=== PATIENT | female | born 1985 | race Caucasian/White ===

== ENCOUNTER 2016-07-07 07:00 | Day surgery (SDC) | payer BC ==
[2016-06-29 12:47] LABS: BASOPHILS 0.3 %; BASOPHILS ABSOLUTE 0.02 10/3/uL (0.0-0.16); EOSINOPHILS 1.2 %; EOSINOPHILS ABSOLUTE 0.07 10/3/uL (0.0-0.53); HEMATOCRIT 39.2 % (36.0-48.0); HEMOGLOBIN 13.2 g/dL (12.0-16.0); IMMATURE GRANULOCYTES 0.2 %; IMMATURE GRANULOCYTES ABSOLUTE 0.01 10/3/uL (0.0-0.11); LYMPHOCYTES 38.6 %; LYMPHOCYTES ABSOLUTE 2.24 10/3/uL (0.67-4.30); MEAN CORPUS HGB CONC 33.7 g/dL (32.0-36.0); MEAN CORPUSCULAR HEMOGLOB 29.4 pg (26.0-34.0); MEAN PLATELET VOLUME 9.8 fL (9.2-13.0); MONOCYTES ABSOLUTE 0.29 10/3/uL (0.21-1.20); NEUTROPHILS 54.7 %; NEUTROPHILS ABSOLUTE 3.17 10/3/uL (2.02-8.40); PLATELET COUNT 236 10/3/uL (150-400); RBC DISTRIBUTION WIDTH 13.2 % (12.0-16.0); RED CELL COUNT 4.49 10/6/uL (4.0-5.6); WHITE BLOOD CELLS 5.8 10/3/uL (4.5-10.5)
[2016-06-29 12:50] LABS: MANUAL DIFF NO %; MEAN CORPUSCULAR VOLUME 87.3 fL (80-100)
[2016-06-29 12:52] LABS: A/G RATIO 1.2 (0.7-1.9); ALBUMIN 3.8 G/DL (3.5-5.0); ALKALINE PHOSPHATASE 68 U/L (45-117); BUN (BLOOD UREA NITROGEN) 12 MG/DL (6-23); CALCIUM, SERUM 8.8 MG/DL (8.5-10.4); CHLORIDE, SERUM 106 MMOL/L (96-112); CO2 (CARBON DIOXIDE) 28 MMOL/L (24-34); CREATININE 0.73 MG/DL (0.55-1.02); GFR AFRICAN AMERICAN 126 ML/MIN (>=60); GFR NON AFRICAN AMERICAN 109 ML/MIN (>=60); GLOBULIN 3.2 G/DL (2.5-4.1); GLUCOSE, SERUM 87 MG/DL (60-99); POTASSIUM, SERUM 4.5 MMOL/L (3.5-5.3); SGOT(AST) 11 U/L (5-40); SGPT(ALT) 24 U/L (5-65); SODIUM, SERUM 141 MMOL/L (135-148); TOTAL BILIRUBIN 0.6 MG/DL (0-1.2)
--- NOTE | ~2016-07-07 | OP ---
Record Of Operation [facility] [address] [place]. [address] NAME: CHEL MARCOS : [birth year] STATUS : [facility]#: [id number] AGE: 30 ADM/REG DATE : 07/07/16 MR#: [id number] REPORT SERV DATE: 07/07/16 DICTATED BY: BERNICE RICH III DATE: 07/07/16 REPORT STATUS : Draft TRANSCRIBED BY: MODChristopher DATE: 07/07/16 DATE OF PROCEDURE: 07/07/2016 PREOPERATIVE DIAGNOSIS: Symptomatic umbilical hernia diagnosis. POSTOPERATIVE DIAGNOSIS: Symptomatic umbilical hernia diagnosis PROCEDURE: Repair of umbilical hernia. SURGEON: Bernice Rich M.D. ANESTHESIA: General with intubation. COMPLICATIONS: None. ESTIMATED BLOOD LOSS: Less than 5 mL. SPECIMENS: None. DRAINS: None. LAP AND SPONGE COUNT: Correct x3. BRIEF HISTORY: This 30-year-old female presented with a symptomatic umbilical hernia. It was felt that repair of this hernia was indicated. This procedure, the risks, benefits, and alternatives, including, but not limited to, the risk for bleeding, infection, enterotomy, injury to abdominal structure, postop small bowel obstruction, ileus, seroma formation, hematoma formation, recurrence of the hernia, and unforeseen complications including deep venous thrombosis, pulmonary embolus, myocardial infarction, stroke, pneumonia, and , were fully and completely explained to the patient prior to surgery. The expected length of recovery was explained. Her questions were answered. She understood the risks and agreed to surgery as planned. DESCRIPTION OF PROCEDURE: After being appropriately identified and after discussing the risks of surgery with the patient and family again in the preoperative area, the patient was taken to the operating room and placed in the supine position on the operating room table. General anesthesia was administered. She was intubated without difficulty. The abdomen was prepped and draped sterilely in the usual fashion. After an appropriate "time-out" per [place] standards, a small incision was made along the inferior border of the navel. The incision was continued through the subcutaneous tissue. Using sharp dissection, the navel was raised superiorly. The incision was continued down to the fascia defect. A small 1 cm fascial defect was identified. The skin and subcutaneous tissue anterior to the defect was mobilized. The underside of the defect was palpated and inspected to be certain that there was no bowel beneath this. Hemostasis was assured. The fascial edges were then reapproximated with interrupted 0 Prolene sutures. The fascia came together nicely with no tension. Hemostasis was assured. The subcutaneous tissue was closed with a running 3-0 Record Of Operation [place] [id number] [facility] [place]. [address] NAME: CHEL MARCOS : [birth year] STATUS : [facility]#: [id number] AGE: 30 ADM/REG DATE : 07/07/16 MR#: [id number] REPORT SERV DATE: 07/07/16 DICTATED BY: BERNICE RICH III DATE: 07/07/16 REPORT STATUS : Draft TRANSCRIBED BY: JOHN DATE: 07/07/16 chromic suture, and the skin was closed with running subcuticular 4-0 Monocryl stitch. The incision was injected with 0.5% Marcaine. Dressings were applied, anesthesia was reversed, and the patient was taken to the recovery room in stable condition. She tolerated the procedure well. Her family was informed the results of the surgery. The patient was discharged when stable and comfortable. Her family was advised that she should keep the wound clean and dry for 48 hours, that she should not drive for two to three days after surgery or while using narcotics, that she should resume her usual medications, and that she should not perform any heavy lifting for five to six weeks. She was asked to return in two weeks for followup or sooner if any fever, chills, wound drainage, or other problems prior to that time. She was given a prescription for Percocet 7.5 one t.i.d., #12, as needed for pain, which she was advised not to use while driving. SUKHI/JOHN Bernice Rich III, M.D. / [id number]
--- NOTE | ~2016-07-07 | PREOPHP ---
PreOp History and Physical [address] [place]. [address] NAME: CHEL MARCOS : [birth year] STATUS : [facility]#: [id number] AGE: 30 ADM/REG DATE : 07/07/16 MR#: [id number] REPORT SERV DATE: 07/09/16 DICTATED BY: BERNICE RICH III DATE: 06/21/16 REPORT STATUS : Draft TRANSCRIBED BY: MODChristopher DATE: 06/21/16 HISTORY OF PRESENT ILLNESS: This 30-year-old female comes to the operating room for repair of a symptomatic umbilical hernia. The patient has umbilical hernia which is symptomatic in terms of local pain and discomfort. She first noticed the hernia during 1 year ago. The hernia is becoming larger and tender and symptomatic. She comes now for repair of this hernia. MEDICATIONS: Metformin. PAST MEDICAL HISTORY: Essentially unremarkable. ALLERGIES: NONE. PAST SURGICAL HISTORY: Includes section and tubal ligation. FAMILY HISTORY: Positive for diabetes and heart disease. SOCIAL HISTORY: No history of tobacco or alcohol use. REVIEW OF SYSTEMS: The patient's 14-point review of systems otherwise unremarkable. PHYSICAL EXAMINATION: OBJECTIVE PHYSICAL EXAM: GENERAL: This is an obese female, in no acute distress. She is alert and oriented x3. VITAL SIGNS: Blood pressure 123/78, pulse 98, and temperature 98.6. HEENT: Unremarkable. Cranial nerves 2 through 12 are normal. LUNGS: Clear. CARDIAC: Normal. ABDOMEN: Soft. Nontender. She has a small umbilical hernia which is reducible. EXTREMITIES: Normal. ASSESSMENT: 1. This 30-year-old female with symptomatic umbilical hernia. 2. Obesity. PLAN: The patient comes to the operating room now for repair of this umbilical hernia. This procedure, the risks, benefits, and alternatives, including not limited to the risk for bleeding, infection, enterotomy, injury to abdominal structure, postop small bowel obstruction, ileus, seroma formation, hematoma formation, recurrence of the hernia, and unforeseen complications including deep venous thrombosis, pulmonary embolus, myocardial infarction, stroke, pneumonia, and , have been explained to the patient prior to surgery. All her questions have been answered. She understands the risks and agrees to the surgery as planned. PreOp History and Physical [address] [place]. [address] NAME: CHEL MARCOS : [birth year] STATUS : [facility] PAT#: [id number] AGE: 30 ADM/REG DATE : 07/07/16 MR#: [id number] REPORT SERV DATE: 07/09/16 DICTATED BY: BERNICE RICH III DATE: 06/21/16 REPORT STATUS : Draft TRANSCRIBED BY: MODL DATE: 06/21/16 [facility]/JOHN Bernice Rich III, M.D. / [id number] CC: Alejandra Emerson III, M.D.
[~2016-07-07 07:00] MED LIST: FORTAMET1000 MG PO; VITAMIN B-121000 MC1 SL
== END 2016-07-07 13:55 | disposition home or self-care (01) ==
LOC: SDC 07:00
PROVIDERS: Surgery
PROC: 0WQF0ZZ Repair Abdominal Wall, Open Approach (ICD-10-PCS; principal; 2016-07-07 09:00)
DX: K42.9 Umbilical hernia without obstruction or gangrene (principal); E66.9 Obesity, unspecified; Z79.84 Long term (current) use of oral hypoglycemic drugs; Z98.891 History of uterine scar from previous surgery; Z98.51 Tubal ligation status; Z83.3 Family history of diabetes mellitus; Z82.49 Family history of ischemic heart disease and other diseases of the circulatory system
CPT/HCPCS: 71020; 80053; 83036; 84703; 85025; 87641; 93005; A9270-GY; J0690; J2250; J2405; J2550; J2710; J3010